=== PATIENT | female | born 1970 | race Caucasian/White ===

== ENCOUNTER 2019-10-12 09:24 | Outpatient (CLI) | payer OTHER, SELFPAY ==
--- NOTE | 2019-10-12 09:29 | MM_ITS ---
WS: [id number] SCREENING DIGITAL MAMMOGRAM WITH CAD HISTORY: SCREENING COMPARISON: 12/05/2014 and 09/25/2016 Bilateral CC and MLO views submitted. Computer aided detection analyzed. Breast composition: There are scattered areas of fibroglandular density. No suspicious masses, microc alcifications or architectural distortion. Benign lymph nodes in the lateral aspects of each breast. MM/[place] [id number] IMPRESSION: BI-RADS: 2-Benign FOLLOW UP: 1 Year Follow-up
== END 2019-10-12 09:25 | disposition home or self-care (01) ==
LOC: RADSHAW 09:29
PROVIDERS: PCP Family Medicine; Visit Provider Family Medicine
DX: Z12.31 Encounter for screening mammogram for malignant neoplasm of breast (principal)
CPT/HCPCS: 77067

== ENCOUNTER → 2020-05-24 08:23 | Outpatient (BNVA) | payer OTHER, SELFPAY | PROVIDERS: PCP Family Medicine; Referring Provider Nurse Practitioner Family; Visit Provider Orthopaedic Surgery | DX: S52.122A Displaced fracture of head of left radius, initial encounter for closed fracture (principal); X58.XXXA Exposure to other specified factors, initial encounter | CPT/HCPCS: 73080 ==

== ENCOUNTER → 2020-06-14 09:35 | Outpatient (BNVA) | payer OTHER, SELFPAY | PROVIDERS: PCP Family Medicine; Visit Provider Orthopaedic Surgery | DX: S52.122D Displaced fracture of head of left radius, subsequent encounter for closed fracture with routine healing (principal); X58.XXXD Exposure to other specified factors, subsequent encounter; W19.XXXD Unspecified fall, subsequent encounter | CPT/HCPCS: 73080 ==

== ENCOUNTER → 2020-07-10 09:12 | Outpatient (BNVA) | payer OTHER, SELFPAY | PROVIDERS: PCP Family Medicine; Visit Provider Orthopaedic Surgery | DX: S59.902A Unspecified injury of left elbow, initial encounter (principal); X58.XXXA Exposure to other specified factors, initial encounter | CPT/HCPCS: 73080 ==

== ENCOUNTER 2022-05-19 13:36 | Emergency (ER) | payer BC, SELFPAY ==
--- NOTE | 2022-05-19 13:46 | W.ED.NEUROSD ---
HPI - Neuro Symptoms/Deficit General: Chief Complaint: Neuro Symptoms/Deficit Stated Complaint: states stroke symtpoms Time Seen by Provider: 05/19/22 13:46 History of Present Illness: Ms Ybarra is a 51-year-old lady with history of anxiety and thyroid disorder presenting to the emergency department for strokelike symptoms. Onset of symptoms was minutes ago at rest. She endorses a abnormal feeling in her chin that subsequently spread to the left side of her face and on the left side of her neck. Denies other associated neurologic symptoms or headache. Denies history of complex migraines/headaches. Intensity symptoms is mild to moderate. Course has persisted. No other specific changes in health, exacerbating, or alleviating factors identified. Onset (ago): minute(s) Location: left face History of same: No Severity: moderate Relieving factors: none Exacerbating factors: none Context: sudden onset On Anticoagulants: No Associated symptoms: Reports no associated symptoms Review of Systems General: Reports: 10 or more systems reviewed and unremarkable except in HPI and below PFSH ED PFSH: Medical History (Updated 05/27/22 @ 00:01 by IESHA Doyle) Anxiety Hypertension Hyperthyroidism Surgical History (Updated 05/19/22 @ 14:14 by Asaf Santiago MD) History of hysterectomy Social History Smoking and tobacco status: never smoked Alcohol intake: never Physical Exam Const: COMMON NORMALS: alert GENERAL APPEARANCE: cooperative and well developed HENMT: COMMON NORMALS: normocephalic and atraumatic HEAD & SCALP: normocephalic and atraumatic THROAT: posterior oropharynx normal Eye: COMMON NORMALS: conjunctivae normal CONJUNCTIVA: Yes conjunctivae normal SCLERA: sclerae normal Neck/C-Spine: COMMON NORMALS: supple GENERAL: Yes trachea midline Resp: COMMON NORMALS: normal respiratory effort EFFORT & INSPECTION: Yes able to speak in complete sentences Cardio: COMMON NORMALS: regular rate and regular rhythm RATE: regular rate RHYTHM: regular rhythm GI: COMMON NORMALS: Soft to palpation PALPATION: Yes Soft to palpation and No Tenderness to palpation present (GI) PERCUSSION: normal to percussion Extremity: GENERAL: Yes normal exam except as noted and No edema Neuro: COMMON NORMALS: moves all extremities SENSORIUM/ORIENTATION: Yes alert and No Orientation impaired OTHER: Left 5th nerve branch 2 and 3 distribution subjective sensory 50 to 75% compared to contralateral side, minimal left corner of mouth weakness compared to contralateral side. Psych: COMMON NORMALS: mental status grossly normal and Normal thought process present THOUGHT PROCESS: Normal thought process present Course Vital Signs: Vital signs: Vital Signs Temperature 98.2 F 05/19/22 13:53 Pulse Rate 68 05/19/22 13:53 Respiratory Rate 18 05/19/22 13:53 Pulse Oximetry 95 05/19/22 13:53 Oxygen Delivery Me thod 05/19/22 13:53 MDM - Neuro Symptoms/Deficit Medical Decision Making 51-year-old lady presenting with reported strokelike symptoms recent onset. NIHSS 1 with possibly second point for minimal left corner of mouth asymmetry compared to contralateral side. Given NIHSS of 2 max patient is not a tPA candidate. EKG notable for sinus rhythm with normal axis and intervals, no STEMI. Labs with no significant hematologic or metabolic abnormalities to explain symptoms. Chest x-ray with no lobar consolidation or pneumothorax. CT head negative. Given physical exam findings and atypical nature of symptoms for stroke as well as other factors and history I do not believe that patient requires further advanced imaging in the emergency department. Case discussed with neurology, plan to treat for atypical Leggett's palsy type symptoms. During ED course patient treated with IV fluids. Exact etiology of patient's symptoms is unclear though may be related to atypical Leggett's palsy/nerve irritation. No vesicular lesions or rashes noted on exam. The results of ED evaluation were discussed with the patient including prescriptions and/or symptomatic cares (if applicable) including appropriate and responsible use, followup plan, and return precautions. The patient verbalized understanding and felt safe for discharge. Medical Records I reviewed the patient's medical records. Lab Data I reviewed the patient's lab results. 05/19/22 14:15 05/19/22 14:15 Radiology Impressions Chest X-Ray 05/19/22 13:54 IMPRESSION: Central lower lung predominant ground-glass opacity. Nonspecific finding. Possible pulmonary edema versus artifact related to overlying soft tissues. Consider follow-up PA and lateral chest radiographs. Head CT 05/19/22 13:54 IMPRESSION: 1. No evidence of intracranial hemorrhage or mass effect. 2. No acute intracranial findings. Notified Asaf Santiago MD at 05/19/2022 2:15 PM. Laboratory Results WBC 8.2 10^3/uL (4.0-10.0) 05/19/22 14:15 RBC 4.91 10^6/uL (4.1-5.3) 05/19/22 14:15 Hgb 13.6 g/dL (11.5-15.3) 05/19/22 14:15 Hct 42.2 % (37.0-47.0) 05/19/22 14:15 MCV 85.9 fl (81-99) 05/19/22 14:15 MCH 27.7 pg (28.0-34.0) L 05/19/22 14:15 MCHC 32.2 g/dL (30.0-36.0) 05/19/22 14:15 RDW 13.9 % (12.1-15.1) 05/19/22 14:15 Plt Count 258 10^3/cmm (130-400) 05/19/22 14:15 MPV 10.0 fL (7.4-10.4) 05/19/22 14:15 Neut % (Auto) 54.0 % 05/19/22 14:15 Lymph % (Auto) 37.1 % 05/19/22 14:15 [place] % (Auto) 4.4 % 05/19/22 14:15 Eos % (Auto) 3.3 % 05/19/22 14:15 Baso % (Auto) 0.7 % 05/19/22 14:15 Neut # (Auto) 4.40 10^3/uL (1.8-7.7) 05/19/22 14:15 Lymph # (Auto) 3.0 10^3/uL (0.8-4.8) 05/19/22 14:15 [place] # (Auto) 0.4 10^3/uL (0.2-0.9) 05/19/22 14:15 Eos # (Auto) 0.3 10^3/uL (0.0-0.8) 05/19/22 14:15 Baso # (Auto) 0.1 10^3/uL (0.0-0.1) 05/19/22 14:15 Nucleated RBC % (auto) 0 % 05/19/22 14:15 Nucleated RBCs # 0.0 /100WBC 05/19/22 14:15 PT 12.70 SECONDS (12.1-14.9) 05/19/22 14:15 INR 0.93 (0.8-1.2) 05/19/22 14:15 APTT 30.9 SECONDS (23.9-36.7) 05/19/22 14:15 Sodium 137 mmol/L (136-145) 05/19/22 14:15 Potassium 3.9 mmol/L (3.5-5.1) 05/19/22 14:15 Chloride 100 mmol/L (98-107) 05/19/22 14:15 Carbon Dioxide 26 mmol/L (22-29) 05/19/22 14:15 Anion Gap 14.9 (5-19) 05/19/22 14:15 BUN 11 mg/dL (6-20) 05/19/22 14:15 Creatinine 0.6 mg/dL (0.5-0.9) 05/19/22 14:15 GFR Calculation 104.6 mL/min (90-130) 05/19/22 14:15 Glucose 107 mg/dL (65-115) 05/19/22 14:15 POC Glucose 108 mg/dL (70-110) 05/19/22 14:16 Calculated Osmolality 284 mOsm/kg (285-295) L 05/19/22 14:15 Calcium 8.2 mg/dL (8.5-10.5) L 05/19/22 14:15 Total Bilirubin 0.3 mg/dL (0.15-1.2) 05/19/22 14:15 AST 14 U/L (0-32) 05/19/22 14:15 ALT 10 U/L (0-33) 05/19/22 14:15 Alkaline Phosphatase 98 U/L (35-105) 05/19/22 14:15 Troponin T Baseline 6 ng/L (0-10) 05/19/22 14:15 Troponin T 120 Minute 6.00 ng/L (0-10) 05/19/22 16:18 Delta Troponin T 0 ABS# (0-10) 05/19/22 16:18 Total Protein 6.8 g/dL (6.6-8.7) 05/19/22 14:15 Albumin 3.9 g/dL (3.5-5.2) 05/19/22 14:15 Globulin 2.9 g/dL (1.3-4.6) 05/19/22 14:15 TSH 3.27 uIU/mL (0.27-4.20) 05/19/22 14:15 Discharge Plan Discharge Patient Disposition: Home Clinical Impression: Facial paresthesia Condition: Stable Prescriptions: New valacyclovir 500 mg tablet 1,000 mg PO TID Qty: 7 0RF No Action acetaminophen [Tylenol Extra Strength] 500 mg tablet 2,400 mg PO DAILY PRN fluoxetine 20 mg capsule 40 mg PO DAILY hydrocodone-acetaminophen 5-325 mg tablet 1 tab PO Q6H PRN (Reason: pain) 7 Days Qty: 20 0RF levothyroxine [Synthroid] 150 mcg tablet 150 mcg PO DAILY Rx Instructions: 6 days per week Discharge Orders: Discharge ED (Routine); Ordered 05/19/22 Ordered By: Asaf Santiago Referrals: Wilbur Calhoun MD [Primary Care Provider] - Discharge Diet: Usual diet Discharge Activity: Resume usual activity Patient Instructions: Paresthesia (ED) Activity Restrictions/Additional Instructions: Thank you for visiting the emergency department. You were seen and evaluated for strokelike symptoms with facial paresthesias. The exact cause of your symptoms is unclear though may be related to nerve irritation. This will be treated with steroids and antivirals. I will message case management for neurology follow-up. Return to the emergency department for worsening symptoms, any new neurologic symptoms, or anything else that you are concerned about and feel needs emergency department evaluation. Coding Level of Care Code ED [employer] Clerk for Jose Roberto Layton
[2022-05-19 13:53] VITALS: PULSE 68; RESP 18; TEMP 36.8; O2SAT 95
--- NOTE | 2022-05-19 13:54 | CT_ITS ---
WS: [id number] CT HEAD TECHNIQUE: Noncontrast CT of the head obtained from the skullbase to the vertex. CLINICAL INFORMATION: Symptoms of acute stroke COMPARISON: None. DLP: [address] scans at [facility] use at least one of these dose optimization techniques: automated e xposure control; mA and/or kV adjustment per patient size (includes targeted exams where dose is matc hed to clinical indication); or iterative reconstruction. FINDINGS: No evidence of intracranial hemorrhage or mass effect. Ventricular system and basal cisterns are bernal nt. Minimal small vessel changes. No extra-axial fluid collections. No evidence of mass or mass effec t. Paranasal sinuses and mastoid air cells are well aerated. .Normal visualized soft tissues. CT/CT head thrombolytic [id number] IMPRESSION: 1. No evidence of intracranial hemorrhage or mass effect. 2. No acute intracranial findings. Notified Asaf Santiago MD at 05/19/2022 2:15 PM.
--- NOTE | 2022-05-19 13:54 | XRR_ITS ---
PROCEDURE INFORMATION: Exam: XR Chest Exam date and time: 05/19/2022 2:10 PM Age: 51 years old Clinical indication: Pain; Chest pressure; Additional info: Chest discomfort TECHNIQUE: Imaging protocol: Radiologic exam of the chest. Views: 1 view. COMPARISON: CT angio chest PE protcl [id number] 06/02/2016 4:34 PM FINDINGS: Lungs: Central lower lung predominant ground-glass opacity bilaterally. There is no consolidation. Pleural spaces: There is no pleural effusion or pneumothorax. Heart/Mediastinum: There is mild enlargement of the cardiac silhouette. Bones/joints: Bones are unremarkable. XR/XR chest 1V portable [id number] IMPRESSION: Central lower lung predominant ground-glass opacity. Nonspecific finding. Possible pulmonary edema versus artifact related to overlying soft tissues. Consider follow-up PA and lateral chest radiographs.
--- NOTE | 2022-05-19 13:55 | ECG_ITS ---
[facility] Test Date: 2022-05-19 Pat Name: Lovely Ybarra Department: Room: Gender: Female Dairy Department Manager: : 1970 Requested By: Asaf Santiago Order Number: [id number] Gerber MD: Wei Thomas M.D. Measurements Intervals [place] Rate: 65 P: 64 NH: 148 QRS: 63 QRSD: 110 T: 51 QT: 420 QTc: 437 Interpretive Statements SINUS RHYTHM Compared to ECG 09/29/2014 14:00:04 No significant changes Electronically Signed On 05-19-2022 14:26:38 FILM HISTORIAN by Wei Thomas M.D. [id number]
[2022-05-19 14:19] LABS: Glucose Point of Care 108 mg/dL (70-110)
[2022-05-19 14:33] LABS: Basophils # 0.1 10^3/uL (0.0-0.1); Basophils % 0.7 %; Eosinophils # 0.3 10^3/uL (0.0-0.8); Eosinophils % 3.3 %; Hematocrit 42.2 % (37.0-47.0); Hemoglobin 13.6 g/dL (11.5-15.3); Lymphocytes % 37.1 %; Mean Corpuscular HGB Conc 32.2 g/dL (30.0-36.0); Mean Corpuscular Hemoglobin 27.7 pg (28.0-34.0); Mean Corpuscular Volume 85.9 fl (81-99); Monocytes # 0.4 10^3/uL (0.2-0.9); Monocytes % 4.4 %; Nucleated Red Blood Cells % 0 %; Platelet Count 258 10^3/cmm (130-400); Red Blood Count 4.91 10^6/uL (4.1-5.3); Red Cell Distribution Width 13.9 % (12.1-15.1); White Blood Count 8.2 10^3/uL (4.0-10.0)
[2022-05-19 14:41] LABS: INR 0.93 (0.8-1.2)
[2022-05-19 14:42] LABS: Partial Thromboplastin Time 30.9 SECONDS (23.9-36.7)
[2022-05-19 14:50] LABS: Troponin(5th) Baseline 6 ng/L (0-10)
[2022-05-19 15:00] LABS: Alanine Aminotransferase 10 U/L (0-33); Albumin Level 3.9 g/dL (3.5-5.2); Alkaline Phosphatase 98 U/L (35-105); Anion Gap 14.9 (5-19); Aspartate Amino Transferase 14 U/L (0-32); Blood Urea Nitrogen 11 mg/dL (6-20); Calcium 8.2 mg/dL (8.5-10.5); Carbon Dioxide 26 mmol/L (22-29); Chloride 100 mmol/L (98-107); Globulin 2.9 g/dL (1.3-4.6); Glomerular Filtration Rate 104.6 mL/min (90-130); Glucose 107 mg/dL (65-115); Osmolality Calculated 284 mOsm/kg (285-295); Potassium 3.9 mmol/L (3.5-5.1); Sodium 137 mmol/L (136-145); Thyroid Stimulating Hormone 3.27 uIU/mL (0.27-4.20); Total Bilirubin 0.3 mg/dL (0.15-1.2); Total Protein 6.8 g/dL (6.6-8.7)
--- NOTE | 2022-05-19 15:55 | ECG_ITS ---
[facility] Test Date: 2022-05-19 Pat Name: Lovely Ybarra Department: Room: Gender: Female Head Of Sales: : 1970 Requested By: Asaf Santiago Order Number: [id number] Zabrina MD: Wei Thomas M.D. Measurements Intervals [place] Rate: 65 P: 64 MO: 158 QRS: 53 QRSD: 112 T: 53 QT: 419 QTc: 436 Interpretive Statements SINUS RHYTHM MODERATE INTRAVENTRICULAR CONDUCTION DELAY [110+ ms QRS DURATION] Compared to ECG 05/19/2022 14:09:17 Intraventricular conduction delay now present Electronically Signed On 05-19-2022 16:44:57 REPLANTING MACHINE CREW by Wei Thomas M.D. [id number]
[2022-05-19 17:09] LABS: Troponin 5 2HR Delta 0 ABS# (0-10)
== END 2022-05-19 17:07 | disposition home or self-care (01) ==
PROVIDERS: Emergency Provider Emergency Medicine; PCP Family Medicine
DX: R20.2 Paresthesia of skin (principal); I10 Essential (primary) hypertension
CPT/HCPCS: 36415; 36416; 70450; 71045; 80053; 82962; 84443; 84484; 85025; 85610; 85730; 93005; 99285

== ENCOUNTER → 2024-07-21 15:03 | Outpatient (BNVA) | payer BC, SELFPAY | PROVIDERS: PCP Family Medicine; Visit Provider Internal Medicine Rheumatology | DX: M31.6 Other giant cell arteritis (principal); Z79.899 Other long term (current) drug therapy; Z71.85 Encounter for immunization safety counseling | CPT/HCPCS: 36415; 82085; 82306; 82550; 86036; 86480; 86704; 86803; 87340 ==

== ENCOUNTER → 2024-09-20 12:37 | Outpatient (BNVA) | payer BC, SELFPAY | PROVIDERS: PCP Family Medicine; Visit Provider Internal Medicine Rheumatology | DX: Z79.899 Other long term (current) drug therapy (principal) | CPT/HCPCS: 36415; 80076; 82306; 82565; 85025; 85651; 86140 ==

== ENCOUNTER 2025-02-15 15:24 | Emergency (ER) | payer BC, SELFPAY ==
[2025-02-15 15:29] VITALS: BMI 55.5
[2025-02-15 15:36] VITALS: BP 162/73; PULSE 85; RESP 17; TEMP 36.6; O2SAT 99
--- NOTE | 2025-02-15 16:01 | CTR_ITS ---
PROCEDURE INFORMATION: Exam: CTA Head With Contrast, Arteriography Exam date and time: 02/15/2025 5:15 PM Age: 54 years old Clinical indication: Pain; Headache; Additional info: Sudden onset headache TECHNIQUE: Imaging protocol: Computed tomographic angiography of the head with contrast. Exam focused on the arteries. Axial, coronal and sagittal reformatted images were created and reviewed. 3D rendering (Not supervised by radiologist): MIP and/or 3D reconstructed images were created by the technologist. Radiation optimization: All CT scans at this facility use at least one of these dose optimization techniques: automated exposure control; mA and/or kV adjustment per patient size (includes targeted exams where dose is matched to clinical indication); or iterative reconstruction. Contrast material: [id number]; Contrast volume: 100 ml; Contrast route: INTRAVENOUS (IV); COMPARISON: CT head thrombolytic [id number] 05/19/2022 2:00 PM RADIATION DOSE METRICS: Total DLP (mGy-cm): 1108.13 FINDINGS: ANTERIOR CIRCULATION: Right internal carotid artery: Intracranial segment is patent with no significant stenosis. No aneurysm. Right middle cerebral artery: No occlusion or significant stenosis. No aneurysm. Right anterior cerebral artery: No occlusion or significant stenosis. No aneurysm. Left internal carotid artery: Intracranial segment is patent with no significant stenosis. No aneurysm. Left middle cerebral artery: No occlusion or significant stenosis. No aneurysm. Left anterior cerebral artery: No occlusion or significant stenosis. No aneurysm. POSTERIOR CIRCULATION: Right vertebral artery: No occlusion or significant stenosis. No aneurysm. Left vertebral artery: No occlusion or significant stenosis. No aneurysm. Basilar artery: No occlusion or significant stenosis. No aneurysm. Right posterior cerebral artery: No occlusion or significant stenosis. No aneurysm. Left posterior cerebral artery: No occlusion or significant stenosis. No aneurysm. Brain: No definite mass, mass effect, or midline shift. Cerebral ventricles: No ventriculomegaly. Bones/joints: Unremarkable. No acute fracture. Soft tissues: Unremarkable. PROCEDURE INFORMATION: Exam: CTA Neck With Contrast Exam date and time: 02/15/2025 5:15 PM Age: 54 years old Clinical indication: Pain; Headache; Additional info: Sudden onset headache TECHNIQUE: Imaging protocol: Computed tomographic angiography of the neck with contrast. Exam focused on the cervical segments of the vasculature. Axial, coronal and sagittal reformatted images were created and reviewed. 3D rendering (Not supervised by radiologist): MIP and/or 3D reconstructed images were created by the technologist. Radiation optimization: All CT scans at this facility use at least one of these dose optimization techniques: automated exposure control; mA and/or kV adjustment per patient size (includes targeted exams where dose is matched to clinical indication); or iterative reconstruction. Contrast material: [id number]; Contrast volume: 100 ml; Contrast route: INTRAVENOUS (IV); COMPARISON: CT head thrombolytic [id number] 05/19/2022 2:00 PM RADIATION DOSE METRICS: Total DLP (mGy-cm): 1108.13 FINDINGS: Right common carotid artery: No stenosis. No dissection or occlusion. Right internal carotid artery: Normal. Extracranial segment patent with no significant stenosis. No dissection or occlusion. Right external carotid artery: No occlusion or stenosis of the origin. Left common carotid artery: No stenosis. No dissection or occlusion. Left internal carotid artery: Normal. Extracranial segment patent with no significant stenosis. No dissection or occlusion. Left external carotid artery: No occlusion or stenosis of the origin. Right vertebral artery: No stenosis. No dissection or occlusion. Left vertebral artery: No stenosis. No dissection or occlusion. Soft tissues: Unremarkable. Bones/joints: No acute osseous abnormality. Osteopenia. Straightening of the normal cervical lordosis. Mild multilevel spondylosis. CT/CT angio headneck* [id number] IMPRESSION: No large vessel stenosis or occlusion. IMPRESSION: No stenosis or occlusion. REFERENCES: NASCET CRITERIA. The degree of stenosis in the cervical segment of the internal carotid artery is based on NASCET criteria. Normal is no stenosis. Mild is less than 50% stenosis. Moderate is 50-69% stenosis. Severe is 70% to 99% stenosis. Total occlusion is no detectable patent lumen.
--- NOTE | 2025-02-15 16:01 | CTR_ITS ---
PROCEDURE INFORMATION: Exam: CT Head Without Contrast Exam date and time: 02/15/2025 5:15 PM Age: 54 years old Clinical indication: Pain; Headache; Additional info: Sudden onset headache TECHNIQUE: Imaging protocol: Computed tomography of the head without contrast. Axial, coronal and sagittal reformatted images were created and reviewed. Radiation optimization: All CT scans at this facility use at least one of these dose optimization techniques: automated exposure control; mA and/or kV adjustment per patient size (includes targeted exams where dose is matched to clinical indication); or iterative reconstruction. COMPARISON: CT head thrombolytic [id number] 05/19/2022 2:00 PM RADIATION DOSE METRICS: Total DLP (mGy-cm): 1108.13 FINDINGS: Brain: Subtle, patchy areas of hypoattenuation in the periventricular and subcortical white matter, nonspecific but suggestive of mild chronic small vessel ischemic disease. No CT evidence of acute intracranial hemorrhage or acute territorial infarction. No significant mass effect or midline shift. Basal cisterns patent. Cerebral ventricles: Prominence of the cortical sulci, cisterns and ventricular system, consistent with cerebral and cerebellar volume loss. Paranasal sinuses: Unremarkable. No fluid levels. Mastoid air cells: Minimal opacification of the left mastoid air cells. Bones: Unremarkable. No acute fracture. Soft tissues: Grossly unremarkable. CT/CT head wo con* [id number] IMPRESSION: 1. No CT evidence of acute intracranial pathology. 2. Additional findings, as above.
--- NOTE | 2025-02-15 16:04 | W.ED.HA ---
HPI - Headache General: Chief Complaint: Headache Stated Complaint: severe headache, double vision Time Seen by Provider: 02/15/25 15:38 Source: patient Mode of arrival: ambulatory Limitations: no limitations History of Present Illness: Patient is a 54-year-old female who presents to the emergency department with sudden onset severe headache that occurred around 1300. States she has a history of giant cell arteritis and this feels similar though she is having pain to bilateral scalp associated with double vision. Pain started while she was eating lunch, it has been steady since onset at an 8/10. No head injury or loss of consciousness. No unilateral numbness weakness or tingling. No facial droop or slurred speech. She does note some generalized facial numbness to the lower lip primarily. Mildly elevated blood pressure at this time 162/73 with the rest of her vitals are stable. She is calm and cooperative, joking at time of examination during neurological assessment. States that she had her giant cell arteritis biopsy negative, however this occurred after she had finished course of prednisone. MD elicited complaint: headache Pertinent past history: other (GCA) Onset (ago): hour(s) Time: 13:00 Onset description: while eating Location: right, left and frontal Severity: similar to previous episodes Pain scale (0-10): 8 Associated symptoms: Deny chest pain, confusion, fever(s), lightheadedness, nausea, rash or vomiting Related Data Home Medications ?Medication ?Instructions ?Recorded ?Confirmed levothyroxine 150 mcg tablet 150 mcg PO DAILY 05/06/19 02/15/25 (Synthroid) fluoxetine 20 mg capsule 40 mg PO DAILY 05/06/21 02/15/25 ibuprofen 125 mg-acetaminophen 250 2 tab PO Q8H PRN Fever Or Pain 02/15/25 02/15/25 mg tablet (Advil Dual Action) ibuprofen 200 mg tablet (Advil) 600 - 800 mg PO Q6H PRN Fever Or 02/15/25 02/15/25 Pain venlafaxine 75 mg capsule,extended 225 mg PO DAILY 02/15/25 02/15/25 release 24 hr Allergies Allergy/AdvReac Type Severity Reaction Status Date / Time No Known Allergies Allergy Verified 02/15/25 15:35 Review of Systems General: Reports: 10 or more systems reviewed and unremarkable except in HPI and below Const: Denies: fever(s), chills or fatigue Eyes: Reports: change in vision ENMT: Denies: throat pain, ear or mastoid pain or nasal discharge Card: Denies: chest pain, palpitations, swelling of feet/ankles or lightheadedness Resp: Denies: dyspnea, productive cough or wheezing GI: Denies: abdominal pain, nausea, vomiting, diarrhea or constipation : Denies: flank pain, difficulty voiding, dysuria or urinary frequency Musc: Denies: neck pain, back pain or joint pain Skin/Breast: Denies: rash Neuro: Reports: headache(s); Denies: numbness in extremities, weakness in extremities, lack of coordination, difficulty walking, dizziness, confusion, Slurred speech present or involuntary movements PFSH ED PFSH: Medical History Chronic steroid use Immunization counseling High risk medication use Giant cell arteritis Hypertension Anxiety Hyperthyroidism Surgical History History of hysterectomy Social History Smoking and tobacco/nicotine status: never used tobacco/nicotine Alcohol intake: never Substance/Drug Use: never Physical Exam Const: COMMON NORMALS: no acute distress, patient oriented x3 and no limitations GENERAL APPEARANCE: cooperative, comfortable and well developed ORIENTATION/CONSCIOUSNESS: Yes awake, Yes oriented to person, Yes oriented to place and Yes oriented to time HENMT: COMMON NORMALS: normocephalic, atraumatic and hearing grossly normal bilaterally HEAD & SCALP: normocephalic and atraumatic Eye: COMMON NORMALS: Equal, round and reactive pupils present, EOMs intact bilaterally and conjunctivae normal CONJUNCTIVA: Yes conjunctivae normal PUPIL: Yes Equal, round and reactive pupils present Resp: COMMON NORMALS: normal respiratory effort, No retractions, No use of accessory muscles and clear to auscultation bilaterally AUSCULTATION: clear to auscultation bilaterally Cardio: COMMON NORMALS: regular rate, regular rhythm, No clicks present (Cardio), No murmurs present (Cardio) and No rub (Cardio) RATE: regular rate RHYTHM: regular rhythm Extremity: COMMON NORMALS: normal to inspection, full ROM and capillary refill normal Neuro: COMMON NORMALS: patient oriented x3, CN's II-XII intact bilaterally, moves all extremities, no focal motor deficits and no sensory deficits noted SENSORIUM/ORIENTATION: Yes oriented to person, Yes oriented to place and Yes oriented to time COORDINATION/BALANCE: [id number] test normal and [id number] test normal SPEECH: speech normal GAIT: Yes Normal gait present MOTOR EXAM: 5/5 motor strength present throughout, Pronator motor function not present, no tremor noted, no asterixis, Motor fasciculations not present, Normal motor muscle tone present throughout and Motor abnormalities not present COORDINATION: [id number] test normal and [id number]-[id number] test normal OTHER: NIH 0 Psych: COMMON NORMALS: mental status grossly normal and Normal thought process present THOUGHT PROCESS: Normal thought process present Skin: COMMON NORMALS: no rashes or lesions noted GENERAL SKIN EXAM: no rashes or lesions noted Course Vital Signs: Vital signs: Vital Signs Temperature 97.8 F 02/15/25 15:36 Pulse Rate 85 02/15/25 15:36 Respiratory Rate 18 02/15/25 17:36 Blood Pressure 162/73 02/15/25 15:36 Pulse Oximetry 100 02/15/25 17:36 Oxygen Delivery Me thod Room Air 02/15/25 17:36 MDM - Headache Medical Decision Making Patient presented with acute onset headache about 3 hours prehospital, history of giant cell arteritis she had noted it felt similar but was to the bilateral scalp. Endorsed double vision as well she had no focal neurological deficit otherwise in terms of unilateral numbness weakness or tingling in her extremities, did note some generalized facial numbness that had spontaneously resolved. NIH of 0. No reported head trauma. Minimally hypertensive here but rest of vitals have been stable. ESR and CRP are not significantly elevated to indicate any possible temporal arteritis at this time, head CT negative and CTA head and neck also negative for any stenosis or occlusion. Suspect migraine type headache she will be referred to neurology, told to return with any new or worsening she does feel better prior to discharge. Lab Data 02/15/25 16:16 02/15/25 16:[address] 02/15/25 16:01 IMPRESSION: 1. No CT evidence of acute intracranial pathology. 2. Additional findings, as above. Head/Neck CTA 02/15/25 16:01 IMPRESSION: No large vessel stenosis or occlusion. IMPRESSION: No stenosis or occlusion. REFERENCES: NASCET CRITERIA. The degree of stenosis in the cervical segment of the internal carotid artery is based on NASCET criteria. Normal is no stenosis. Mild is less than 50% stenosis. Moderate is 50-69% stenosis. Severe is 70% to 99% stenosis. Total occlusion is no detectable patent lumen. Laboratory Results WBC 8.18 10^3/uL (3.29-11.43) 02/15/25 16:16 RBC 4.82 10^6/uL (3.85-5.65) 02/15/25 16:16 Hgb 13.00 g/dL (11.27-16.99) 02/15/25 16:16 Hct 39.9 % (36-47) 02/15/25 16:16 MCV 82.8 fl (85-98) L 02/15/25 16:16 MCH 27.0 pg (27-33) 02/15/25 16:16 MCHC 32.6 g/dL (30-55) 02/15/25 16:16 RDW 13.7 % (12.1-15.1) 02/15/25 16:16 Plt Count 254 10^3/cmm (157-399) 02/15/25 16:16 MPV 10.1 fL (7.4-10.4) 02/15/25 16:16 Neut % (Auto) 59.4 % 02/15/25 16:16 Lymph % (Auto) 29.0 % 02/15/25 16:16 [place] % (Auto) 5.7 % 02/15/25 16:16 Eos % (Auto) 4.6 % 02/15/25 16:16 Baso % (Auto) 0.9 % 02/15/25 16:16 Neut # (Auto) 4.86 10^3/uL (1.8-7.7) 02/15/25 16:16 Lymph # (Auto) 2.4 10^3/uL (0.8-4.8) 02/15/25 16:16 [place] # (Auto) 0.5 10^3/uL (0.2-0.9) 02/15/25 16:16 Eos # (Auto) 0.4 10^3/uL (0.0-0.8) 02/15/25 16:16 Baso # (Auto) 0.1 10^3/uL (0.0-0.1) 02/15/25 16:16 Nucleated RBC % (auto) 0 % 02/15/25 16:16 Nucleated RBCs # 0.0 /100WBC 02/15/25 16:16 ESR 9 mm/hr (0-15) 02/15/25 16:16 Sodium 140 mmol/L (136-145) 02/15/25 16:16 Potassium 4.0 mmol/L (3.5-5.1) 02/15/25 16:16 Chloride 104 mmol/L (98-107) 02/15/25 16:16 Carbon Dioxide 27 mmol/L (22-29) 02/15/25 16:16 Anion Gap 13.0 (5-19) 02/15/25 16:16 BUN 13 mg/dL (6-20) 02/15/25 16:16 Creatinine 0.8 mg/dL (0.5-0.9) 02/15/25 16:16 GFR Calculation 74.2 mL/min (90-130) L 02/15/25 16:16 Glucose 112 mg/dL (65-115) 02/15/25 16:16 Calculated Osmolality 291 mOsm/kg (285-295) 02/15/25 16:16 Calcium 8.5 mg/dL (8.5-10.5) 02/15/25 16:16 Total Bilirubin 0.2 mg/dL (0.15-1.2) 02/15/25 16:16 AST 13 U/L (0-32) 02/15/25 16:16 ALT 8 U/L (0-33) 02/15/25 16:16 Alkaline Phosphatase 122 U/L (35-105) H 02/15/25 16:16 C-Reactive Protein 13.4 mg/L (0.0-4.9) H 02/15/25 16:16 Total Protein 6.8 g/dL (6.6-8.7) 02/15/25 16:16 Albumin 3.9 g/dL (3.5-5.2) 02/15/25 16:16 Globulin 2.9 g/dL (1.3-4.6) 02/15/25 16:16 All radiology interpretation(s) finalized by discharge Discharge Plan Discharge Patient Disposition: Home Clinical Impression: Migraine Qualifiers: Migraine type: unspecified Status migrainosus presence: without status migrainosus Intractability: not intractable Qualified Code(s): G43.909 - Migraine, unspecified, not intractable, without status migrainosus Condition: Stable Prescriptions: No Action fluoxetine 20 mg capsule 40 mg PO DAILY levothyroxine [Synthroid] 150 mcg tablet 150 mcg PO DAILY venlafaxine 75 mg capsule,extended release 24hr 225 mg PO DAILY ibuprofen [Advil] 200 mg Tablet 600 - 800 mg PO Q6H PRN (Reason: Fever Or Pain) ibuprofen-acetaminophen [Advil Dual Action] 125-250 mg Tablet 2 tab PO Q8H PRN (Reason: Fever Or Pain) Discharge Orders: Discharge ED (Routine); Ordered 02/15/25 Ordered By: Rigo Polk Referrals: Wilbur Calhoun MD [Primary Care Provider, Family Practice] Patient Instructions: Patient Portal & Joel Instructions Activity Restrictions/Additional Instructions: Migraine Discharge Instructions Diagnosis: You were treated in the emergency department for a migraine headache. While you have a history of giant cell arteritis, your blood tests (ESR and CRP) and imaging studies (CT scan and CT angiography) were normal, which makes giant cell arteritis unlikely as the cause of your current headache. What You Received Today: You were given a migraine cocktail in the emergency department, and your symptoms have improved. This is a good sign that your headache is responding to migraine-specific treatment. Medications for Home: For headache recurrence in the next 48 hours, consider taking: - Naproxen sodium 550 mg by mouth, which can be taken every 12 hours as needed - Sumatriptan (a triptan medication) as prescribed, which can be taken if naproxen alone does not provide adequate relief If you do not have contraindications to these medications, they are proven to deliver relief for post-emergency department headache recurrence. Alternative options if the above medications are ineffective or not tolerated include other nonsteroidal anti-inflammatory drugs (NSAIDs) such as ibuprofen, or acetaminophen 1000 mg. Important Medication Safety: - Avoid opioid pain medications (such as hydrocodone or oxycodone) for migraine treatment, as they are not effective and carry risks of dependence and medication overuse headaches - Triptans should be avoided if you have heart disease, stroke history, or multiple cardiovascular risk factors due to their effects on blood vessels - Do not take more than the recommended dose of any medication - Avoid overusing acute migraine medications (more than 10 days per month), as this can lead to medication overuse headaches When to Seek Emergency Care: Return to the emergency department or call 911 if you experience: - Sudden, severe headache that is different from your usual migraines (especially thunderclap onset) - New neurologic symptoms such as weakness, numbness, vision changes, difficulty speaking, or confusion - Fever with headache - Headache after head injury - Headache that worsens despite treatment Given your history of giant cell arteritis, also watch for: - New jaw pain with chewing - New vision changes or vision loss - Scalp tenderness - Persistent fever or unexplained weight loss Follow-Up Care: You have a referral to neurology for further evaluation and management of your migraines. This is important because: - A neurologist can help determine if you need preventive medications to reduce migraine frequency - They can optimize your acute treatment plan - They can evaluate whether your headaches are related to your history of giant cell arteritis or represent a separate condition Please schedule this appointment within the next 2-4 weeks. General Migraine Management: - Keep a headache diary to track triggers, frequency, and what helps - Identify and avoid dietary triggers when possible - Maintain regular sleep schedules - Stay well-hydrated - Manage stress when possible Questions or Concerns: If you have questions about your medications or symptoms before your neurology appointment, contact your primary care physician. 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
--- OUTSIDE RECORDS SUMMARY | 2025-02-15 16:14 | XMS_ITS | Data Portability ---
Author Organization DIANA [facility] Address [address] [facility] [address] [place] [address] Care Team Providers Care Mannequin Molder Name Role Phone FRANCK CALHOUN Primary Care Provider [phone] Assessment Encounter Date Assessment Date Assessment LastModified by Organization Details LastModified Time 06/17/2024 06/17/2024 she will call Thursday with an update. I spent greater than 45 mins in counseling and answering questions on likey pmr and why it can be fatal cause blindness strokes etc and the importance of not stopping prednisone. . all questions were answered to the patient's satisfaction. the patient was given the opportunity to ask additional questions and acknowledged he had no additional questions at this time and will call if any questions arise. [email or web address] Not available 06/17/2024 10:56:44 Plan of Treatment Reminders Order Date Submit Date Provider Last Modified By Organization Details Last Modified Time Details Appointments ACUTE VISIT 2024 01:40P M WALK-IN Not available Not available Not available Lab C-reactiv e protein, quantitat kera, serum or plasma 2024 025 [email or web address] [facility], [address] [facility] [address], [address], [place], [address], 06/24/2024 08:36:46 CBC 2024 025 [facility], [address], [place], [address], 06/17/2024 11:20:39 CMP, serum or plasma 2024 025 [place] [facility], [address] [facility], [address], [place], [address], 06/17/2024 12:19:15 ESR (erythroc yte sedimenta tion rate), blood 2024 025 [facility] ([facility]), [address] [place] [address], [address], 06/17/2024 12:18:00 [place] + rf (antinucl ear antibodie s + rheumatoi d factor), quantitat kera, serum 2024 025 [email or web address] [facility], [address] [place] [address], [address], [place], [address], 06/24/2024 08:36:46 C-reactiv e protein, quantitat kera, serum or plasma 2024 025 [place] [facility], [address] [place] [address], [address], [place], [address], 06/21/2024 15:47:44 Referral otolaryng ologist referral 2024 025 Rancho Platt MD, [address] [place], [address], 07/22/2024 11:30:47 rheumatol ogist referral 2024 025 asurface Jerry Rey MD, [address] [place], [address], 07/04/2024 12:21:46 Procedures None recorded. Surgeries None recorded. Imaging electroca rdiogram 2024 025 [email or web address] [facility] ([facility]), [address] [place] [address], [address], 07/17/2024 21:46:54 Medication Orders prednison e 20 mg tablet 2024 025 [id number], [address], [facility], [place], [address], 02/15/2025 15:12:55 prednison e 5 mg tablet 2024 025 [id number], [address], [facility], [place], [address], 07/12/2024 17:30:45 levothyro xine 150 mcg tablet 2024 025 [id number], [address] [facility] [address], [facility], [place], [address], 06/17/2024 10:54:02 Patient TargetsNo targets recorded. Patient InstructionsNo instructions recorded. 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 r Temporal headache Referring Physician: Franck Calhoun [facility], Encounter Date: 07/13/2024 Results Created Date Observation Date Name Description Value Unit Range Abnormal Flag Note LastModifiedBy Organization Detail LastModifiedTime 06/18/1906/17/2024 CBC WBC 11.2 x10 4.0-10 .5 high Not Available [facility] [address] [facility], [place], [address], 06/17/2024 11:20:39 06/18/19 25 06/17/2024 CBC RBC 5.50 x10 3.50-5 .50 Not Available [facility] [address] [facility], [place], [address], 06/17/2024 11:20:39 06/18/19 25 06/17/2024 CBC HGB 15.7 g/dL 12.0-1 6.0 Not Available [facility] [address] [facility], [place], [address], 06/17/2024 11:20:39 06/18/19 25 06/17/2024 CBC HCT 47.5 % 37.0-4 7.0 high Not Available [facility] [address] [facility] [address] [facility], [place], [address], 06/17/2024 11:20:39 06/18/19 25 06/17/2024 CBC MCV 86.4 fL 80.0-9 9.9 Not Available [facility] [address] [facility] [address] [facility], [place], [address], 06/17/2024 11:20:39 06/18/19 25 06/17/2024 CBC MCH 28.5 pg 27.0-3 2.0 Not Available [facility] [address] [facility] [address] [facility], [place], [address], 06/17/2024 11:20:39 06/18/19 25 06/17/2024 CBC MCHC 33.0 g/dL 32.0-3 6.0 Not Available [facility] [address] [facility] [address] [facility], [place], [address], 06/17/2024 11:20:39 06/18/19 25 06/17/2024 CBC RDW 14.6 % 11.5-1 4.5 high Not Available [facility] [address] [facility] [address] [facility], [place], [address], 06/17/2024 11:20:39 06/18/19 25 06/17/2024 CBC plt 296.2 x10 140.0- 451.0 Not Available [facility] [address] [facility] [address] [facility], [place], [address], 06/17/2024 11:20:39 06/18/19 25 06/17/2024 CBC lymphocytes % 35.4 % 20.0-5 0.0 Not Available [facility] [address] [facility], [place], [address], 06/17/2024 11:20:39 06/18/19 25 06/17/2024 CBC granulcytes % 56.8 % 30.0-7 0.0 Not Available [facility] [address] [facility], [place], [address], 06/17/2024 11:20:39 06/18/19 25 06/17/2024 CBC monocytes % 5.6 % 2.0-16 .0 Not Available [facility] [address] [facility], [place], [address], 06/17/2024 11:20:39 06/18/19 25 06/17/2024 CBC granulcytes# 6.3 x10 Not Lisa ilable [facility] [address] [facility] [address], [place], [address], 06/17/2024 11:20:39 06/18/19 25 06/17/2024 CBC lymphocytes # 4.0 x10 Not Available [facility] [address] [facility] [address], [place], [address], 06/17/2024 11:20:39 06/18/19 25 06/17/2024 CBC monocytes # 0.6 x10 Not Avai lable [facility] [address] [facility] [address], [place], [address], 06/17/2024 11:20:39 06/18/19 25 06/17/2024 CMP (FEMA LE) glucose 113.0 mg/dL 60.0-9 9.0 high Not Available [facility] [address] [facility], [place], [address], 06/17/2024 12:19:15 06/18/19 25 06/17/2024 CMP (FEMA LE) BUN (blood urea nitrogen) 15.0 mg/dL 10.0-2 6.0 Not Available [facility] [address] [facility], [place], [address], 06/17/2024 12:19:15 06/18/19 25 06/17/2024 CMP (FEMA LE) creatinine (serum) 0.9 mg/dL 0.4-1. 5 Not Available [facility] [address] [facility] [address], [place], [address], 06/17/2024 12:19:15 06/18/19 25 06/17/2024 CMP (FEMA LE) BUN/creatini ne ratio 16.67 ratio Not Available [place] [address] [facility] [address], [place], [address], 06/17/2024 12:19:15 06/18/19 25 06/17/2024 CMP (FEMA LE) eGFR calculated 69.1 Not Available [facility] [address] [facility] [address], [place], [address], 06/17/2024 12:19:15 06/18/19 25 06/17/2024 CMP (FEMA LE) total protein 7.8 g/dL 6.0-8. 5 Not Available [facility] [address] [facility] [address], [place], [address], 06/17/2024 12:19:15 06/18/19 25 06/17/2024 CMP (FEMA LE) total bilirubin 0.5 mg/dL 0.2-1. 3 Not Available [facility] [address] [facility] [address], [place], [address], 06/17/2024 12:19:15 06/18/19 25 06/17/2024 CMP (FEMA LE) albumin 4.5 g/dL 3.5-5. 5 Not Available [facility] [address] [facility], [place], [address], 06/17/2024 12:19:15 06/18/19 25 06/17/2024 CMP (FEMA LE) globulin 3.3 calc Not Available [facility] [address] [facility] [address], [place], [address], 06/17/2024 12:19:15 06/18/19 25 06/17/2024 CMP (FEMA LE) AST (SGOT) 24.0 U/L 0.0-46 .0 Not Available [facility] [address] [facility] [address], [place], [address], 06/17/2024 12:19:15 06/18/19 25 06/17/2024 CMP (FEMA LE) altv (SGPT) 18.0 U/L 13.0-6 9.0 normal Not Available [facility] [address] [facility] [address], [place], [address], 06/17/2024 12:19:15 06/18/19 25 06/17/2024 CMP (FEMA LE) A/G ratio 1.4 ratio Not Available [facility] [address] [facility] [address], [place], [address], 06/17/2024 12:19:15 06/18/19 25 06/17/2024 CMP (FEMA LE) ALP phos 122.0 U/L 30.0-1 40.0 normal Not Available [facility] [address] [facility] [address], [place], [address], 06/17/2024 12:19:15 06/18/19 25 06/17/2024 CMP (FEMA LE) calcium 9.4 mg/dL 8.4-10 .5 Not Available [facility] [address] [address], [place], [address], 06/17/2024 12:19:15 06/18/19 25 06/17/2024 CMP (FEMA LE) sodium 138.0 mmol/ L 136.0- 145.0 Not Available [facility] [address] [facility], [place], [address], 06/17/2024 12:19:15 06/18/19 25 06/17/2024 CMP (FEMA LE) potassium 4.1 mmol/ L 3.5-5. 1 Not Available [facility] [address] [facility], [place], [address], 06/17/2024 12:19:15 06/18/19 25 06/17/2024 CMP (FEMA LE) chloride 100.0 mmol/ L 98.0-1 10.0 normal Not Available [facility] [address] [facility], [place], [address], 06/17/2024 12:19:15 06/18/19 25 06/17/2024 CMP (FEMA LE) C02 29.0 mmol/ L 22.0-3 1.0 Not Available [facility] [address] [facility] [address], [place], [address], 06/17/2024 12:19:15 06/18/19 25 06/17/2024 CMP (FEMA LE) anion gap 9.0 calc Not Available [facility] [address] [facility], [place], [address], 06/17/2024 12:19:15 06/18/19 25 06/17/2024 CMP (FEMA LE) osmolality 286.7 calc Not Available [facility] [address] [facility], [place], [address], 06/17/2024 12:19:15 06/18/19 25 06/21/2024 [place],I FA, CASCA DE AND RHEUM ATOID ARTHR ITIS PANEL 2, WITH REFLE XES [place] screen, ifa NEGATI VE negati ve normal [place] IFA is a first line scree n for detec ting the prese nce of up to appro ximat marla 150 autoa ntibo dies in vario us autoi mmune disea ses. A negat kera [place] IFA resul t sugge sts an BR[place]ON-a ssoci ated autoi mmune disea se is not prese nt at this time, and does not refle x furth er. If there is high clini racheal suspi cion for Sjogr en's syndr ome, testi ng for anti- SS-A/ Ro antib sammie shoul d be consi dered . Anti- Caro-1 antib sammie shoul d be consi dered for clini ashley suspe cted infla mmato ry myopa bautista . AC-0: Negat kera Inter natio nal Conse nsus on BR[place] Patte rns (http s://d oi.or g/10. 1515/ [facility]- 2017- 0052) For addit ional infor enedina paul e refer to http: //[facility] melissa bello.Ramirez stDia gnost ics.c om/fa q/FAQ 177 (This link is being provi ded for infor matio nal/ educa emily l purpo ses only. ) Not Available [facility] [place] [address] [place], [address], 06/21/2024 15:47:42 06/18/19 25 06/21/2024 BR[place],I FA, CASCA DE AND RHEUM ATOID ARTHR ITIS PANEL 2, WITH REFLE XES rheumatoid factor <10 IU/mL <14 normal Not Available [facility] [address] [place], [address], 06/21/2024 15:47:42 06/18/19 25 06/21/2024 BR[place],I FA, CASCA DE AND RHEUM ATOID ARTHR ITIS PANEL 2, WITH REFLE XES cyclic citrullinate d peptide (ccp) Ab (IgG) <16 units normal Refer ence Range Negat kera: <20 Weak Posit kera: 20-39 Moder ate Posit kera: 40-59 Stron g Posit kera: >59 Not Available [place] [address] [address] [place], [address], 06/21/2024 15:47:42 06/18/19 25 06/21/2024 [place],I FA, CASCA DE AND RHEUM ATOID ARTHR ITIS PANEL 2, WITH REFLE XES mutated citrullinate d vimentin (MCV) Ab <20 U/mL <20 Anti- mutat ed citru llina rm vimen tin antib sammie may be used as a secon d-alyssa e marke r of rheum atoid arthr itis, in addit ion to rheum atoid facto r and anti- cycli c citru llina rm pepti de (CCP) . Not Available [place] [address] [address] [place], [address], 06/21/2024 15:47:42 06/18/19 25 06/21/2024 CREAT INE KINAS E, TOTAL creatine kinase, total 48 U/L 21-240 normal Not Available [address], [address], 06/21/2024 15:47:43 06/18/19 25 06/21/2024 C-ANDREAS CTIVE PROTE IN C-reactive protein 7.7 mg/L <8.0 normal Not Available [address] [place], [address], 06/21/2024 15:47:43 06/18/19 25 06/17/2024 ESR (eryt hrocy te sedim entat ion rate) , blood ESR 15 Not Available [facility] ([facility]) [address] [place], [address], 06/17/2024 10:59:01 07/15/19 25 07/14/2024 elect rocar diogr am No observ ation record ed. [email or web address] [facility] ([facility]) [address] [place], [address], 07/14/2024 15:44:24 07/16/19 25 07/14/2024 shahrzad mae am No observ ation record ed. [email or web address] [facility] ([facility]) [address] [place], [address], 07/15/2024 10:24:17 Result Notes None recorded. Problems Name Problem SNOMED Code Status Onset Date Resolution Date Notes Provider Name and Address Organization Details Recorded Time Hypothyroidism 31504661 Active 2022 KASSY garcia [facility] 4 08:19:07 Depressive disorder 26971878 Active 2023 KASSY garcia [facility] 4 08:19:04 Inflammatory polyarthropath y 357137558 Active 2024 KASSY garcia [facility] 5 09:25:08 Problem Notes None recorded. Medical Equipment None Reported. Allergies No known drug allergies Medications Name Sig Start Date Stop Date Status Note LastModified by Organization Details LastModified Time fluoxetin e 40 mg capsule TAKE 1 CAPSULE BY MOUTH EVERY DAY active Not Available Not Available No t Available amoxicill in 500 mg capsule TAKE 1 CAPSULE EVERY 8 HOURS UNTIL GONE 06/17 completed Not Available Not Available Not Available venlafaxi ne ER 75 mg capsule,e xtended release 24 hr TAKE 3 CAPSULES BY MOUTH EVERY DAY 2024 active Not Available Not Available Not Avai lable Tylenol 500 mg capsule as needed 06/06 completed 0; Recorded 05/16/19 23 9:27AM by Nina Kaba RN, Office Visit; Not Available Not Available Not Available doxycycli ne hyclate 100 mg capsule TAKE 1 CAPSULE BY MOUTH TWICE A DAY FOR 10 DAYS 03/13 completed Not Available Not Available Not Available hydrocodo ne 5 mg-acetam inophen 325 mg tablet TAKE 1-2 TABLETS BY MOUTH EVERY 5 HOURS NEEDED FOR PAIN 02/15 completed Not Available Not Available Not Available prednison e 20 mg tablet 2&1/2 TABS DAILY FOR 1 WEEK, 2 TABS DAILY FOR 1 WEEK, 1&1/2 TABS DAILY FOR 2 WEEKS NEEDED 02/15 completed Not Available Not Available Not Available prednison e 5 mg tablet TAKE 3 TABLETS BY MOUTH EVERY DAY 07/12 completed Not Available Not Available Not Available valacyclo vir 500 mg tablet TAKE 2 TABLETS BY MOUTH 3 TIMES A DAY 09/26 completed Not Available Not Available Not Available omeprazol e 40 mg capsule,d elayed release TAKE 1 CAPSULE IN AM 30 MINUTES BEFORE BREAKFAS T ORALLY DAILY 02/15 completed Not Available Not Available Not Available levothyro xine 150 mcg tablet TAKE 1 TABLET BY MOUTH EVERY DAY active Not Available Not Available No t Available ketorolac 60 mg/2 mL intramusc ular solution Inject 1 mL every 6 hours by intramus cular route. 07/22 completed Not Available Not Available Not Available fluoxetin e daily 03/13 completed 436; Recorded 05/16/19 23 7:18AM by Kassy Preston LPN (Authori matthew through Franck Calhoun MD), Refill Request; Refill Quantity : 30; Capsule; Not Available Not Available Not Available venlafaxi ne daily 03/13 completed Recorded 05/16/19 23 9:41AM by Franck Calhoun MD, Office Visit; Refill Quantity : 90; Tablet; Not Available Not Available Not Available prednison e 07/13 completed Not Available Not Available Not Available betametha sone 6 mg/mL injection suspensio n/norflur -HFC 245fa top spray Take 9 mg by miscell. route for 1 day. 07/22 completed Not Available Not Available Not Available Vitals Date Recorded Body height Body mass index (BMI) Body weight Body temperature Heart rate Oxygen saturation Systolic And Diastolic Provider Name and Address Organization Details Last Updated DateTime 5 165.1 cm 53.4 kg/m2 119622. 15 g 97.4 [degF] 100 /min 95 % 148/72 mm[Hg] KASSYCorrine PRESTON [facility] 5 09:29:17 Date Recorded Body height Body mass index (BMI) Body weight Oxygen saturation Heart rate Respiratory rate Body temperature Systolic And Diastolic Provider Name and Address Organization Details Last Updated DateTime 5 165.1 cm 53.7 kg/m2 151771. 34 g 96 % 88 /min 16 /min 98.2 [degF] 150/86 mm[Hg] Martha Rao [facility] 5 17:36:46 Date Recorded Body height Body mass index (BMI) Body weight Body temperature Heart rate Oxygen saturation Systolic And Diastolic Provider Name and Address Organization Details Last Updated DateTime 5 165.1 cm 53.3 kg/m2 859323. 56 g 97.4 [degF] 94 /min 94 % 152/88 mm[Hg] KASSY PRESTON [facility] 5 08:30:43 Date Recorded Body height Body mass index (BMI) Body weight Oxygen saturation Heart rate Body temperature Systolic And Diastolic Provider Name and Address Organization Details Last Updated DateTime 5 165.1 cm 55.6 kg/m2 364265. 85 g 96 % 81 /min 98.1 [degF] 124/80 mm[Hg] Kadie Olmedoelvin [facility] 5 15:17:04 Social History Question Answer Notes LastModified by Organizat ion Details LastModified Time Tobacco Smoking Status Never Smoker KASSYCorrine PRESTON [facility] 09/26/2022 08:49:43 What Was The Date Of Your Most Recent Tobacco Screening? 02/15/2025 [email or web address] Information not available 02/15/2025 Sex: Unknown Functional Status Question Answer Note LastModified by Organization D etails LastModified Time Do you or have you ever used any other forms of tobacco or nicotine? No [email or web address] Information not available 06/17/2024 What is your level of alcohol consumption? None [email or web address] Information not available 09/26/2022 Do you or have you ever used any nicotine-free cigarettes, vape, or chewing tobacco? No Information not available 06/17/2024 Mental Status None recorded. Family History Relationship Description Onset Age of this Age Resolved Age Notes LastModified by Organization Details LastModified Time Mother Diabetes mellitus Not available 06/17 09:25:43 Mother Age related macular degeneration [email or web address] Not available 09:25:57 Medical History No medical history recorded. Gynecological HistoryNo gynecological history recorded. Obstetrics History GPAL:G 0 P 0 0 0 0 Immunizations Vaccine Type Date Status Note Provider Nam e and Address Organization Details Recorded Time Influenza, split virus, trivalent, preservative 0 completed Not Available [facility] 04/14/2023 14:17:54 COVID-19, mRNA, LNP-S, PF, 100 mcg/0.5mL dose or 50 mcg/0.25mL dose 1 completed KASSY garcia [facility] 09/26/2022 08:48:17 COVID-19, mRNA, LNP-S, PF, 100 mcg/0.5mL dose or 50 mcg/0.25mL dose 1 completed KASSY garcia [facility] 09/26/2022 08:48:17 Tdap 5 completed KASSY garcia [facility] 09/26/2022 08:48:17 Past Encounters Encounter ID Performer Location Encounter Start Date Encounter Closed Date Diagnosis/Indication Diagnosis SNOMED-CT Code Diagnosis ICD10 Code Diagnosis IMO Codes Diagnosis Note [id number] Franck Calhoun MD [facility] ([facility]) [address] [place] [id number] 09/26/2022 08:38:43 09/26/2022 11:14:02 Hypothyroidism 09172005 E03.9 [id number] VESTA CLARK [facility] ([facility]) [address] [place] [id number] 5 03/04/2023 15:28:51 03/04/2023 16:30:13 Acute upper respiratory infection 14253657 J06.9 Suspected pneumonia or CHAD. Start doxycyclin e and prednisone today. Recommend avoiding cough suppressan ts. Encouraged patient to push fluids and use cool mist humidifier at night. Can take tylenol/ib uprofen as needed for pain and fever. Encouraged patient to return for further evaluation if no improvemen t in 3-5 days. If severe SOB or chest pain occurs, go to ED. Patient verbalized understand ing. [id number] Franck Calhoun MD [facility] ([facility]) [address] [place] [id number] 5 03/13/2023 12:04:23 03/16/2023 21:46:29 Fever 105067255 R50.9 call tues. with report of progress. be seen right away if sx worsen in any waywbc is reassuring against severe bacterial infection, vs are stable. will continue to monitor. [id number] Franck Calhoun MD [facility] ([facility]) [address] [place] [id number] 5 04/14/2023 14:15:33 04/14/2023 15:04:34 Patellar bursitis of left knee [id number] 545758 M70.52 Strain of flexor muscle of left hip 9148215996 1226471 S76.012A left knee mcmurrays is negligamen ts intactrom of the hip is pretty good but painful [id number] Franck Calhoun MD [facility] ([facility]) [address] [place] [id number] 5 05/12/2024 10:01:35 05/13/2024 10:15:32 Hypothyroidism 68485249 E03.9 Adult heal th examination 944924555 Z00.00 Hyperglycemia 82314962 R 73.9 [id number] Carson Vang DO [facility] ([facility]) [address] [place] [address] [id number] 5 06/06/2024 13:57:14 06/06/2024 15:40:17 Inflammatory polyarthropathy 985876027 M06.4 concern for autoimmune arthropath y. will start steroid burst for 10 days. pt to f/u with pcp in 2-3 wks for re-eval and considerat ion of workup for this. pt will update PCP on how/if the prednisone changed her symptoms. [id number] Franck Calhoun MD [facility] ([facility]) [address] [place] [id number] 5 06/17/2024 09:18:42 06/17/2024 13:46:39 Proximal muscle weakness 694848601 M62.81 if she gets a headache she will go up to 60 mg dally and seek er care or if any sign of organ damage vision change. Hypothyroidism 31901061 E03.9 [id number] CHRISTOS GOTTI [facility] ([facility]) [address] [place] [address] [id number] 5 07/12/2024 17:25:58 07/16/2024 22:16:59 Inflammatory polyarthropathy 181979612 M06.4 Will increase pt's daily prednisone for the acute flare. She has an appt with her PCP tomorrow morning. She has taken 15mg prednisone today. Advised to take an add'l 20mg tab once she fills the rxn this evening. Tomorrow morning take 2 tabs and keep appt with PCP.Concer n for temperol arteritis with the tenderness present today. [id number] Franck Calhoun MD [facility] ([facility]) [address] [place] [id number] 5 07/13/2024 08:26:05 07/13/2024 09:22:19 Temporal headache 33906295 R51.9 [id number] with proximal muscle weakness.s he is given 20 additional mg of prednisone while here to make total of 60 mg todayshe will take 60 mg in the a.m. and see ENT tomorrow to consider temporal artery bx new onset jaw and tongue fatigue, temporal ttp and headache in the setting of proximal muscle weakness previously very responsive to prednisone . esr and crp were normal onmy initial eval but she was already on prednisone 20 mg for one week at that time. ck was kamryn, brenton/rheum panel neg, cmp normal, cbc unremarkab le, tsh normal. will also request an expedited rheumatolo gy eval. if she has increased headache, weakness, any neurologic sx including loss of vision flashing lights shad in the vision she will go immediatel y to the ER. I have spent 50 minutes evaluatin and in counsleoin g of hs patient regarding these issues. all of her questions were answered to her satisfacti on. 90% of this time wa face to face and included discussion with ENt specialist today and messaging uriel holman. i expect there will be additional time management discussing her case with uriel holman as well. [id number] Franck Calhoun MD [facility] ([facility]) [address] [place] [phone] 07/14/2024 10:26:38 07/17/2024 21:46:53 Preoperative procedure [id number] Health Concerns Section Related Observation LastModified by Organization Detai ls LastModified Time None Recorded Concern Status LastModified by Organization Details LastModified Time None Recorded Advance Directives Directive None Recorded Payers Insurance Date Sequence Insurance Name Policy Number Policy Arauz Covered Member ID Arauz Member ID Guarantor Name 02/15/2025 1 [employer] [id number] Lovely Ybarra [id number] Lovely Ybarra Notes Date Note Type Note Provider Name and Address Organization Details Recorded Time 06/17/2024 text/html Joint PainReport ed by PatientHPIFor location, (patient reports that when this happens, she has all over muscle and joint pain.). For associated symptoms, (fatigue).Patient states that about 2-3 times a month she will have all over joint pain and muscle pain. She reports that everything hurts. This will last for about 24 hours. Patient states that after the 24 hours, she forces herself to get up and then symptoms will improve. Patient reports having a lot of motivation issues with this. she responded to prednisone i could move much more every weekend she becomes fatigued. I don't want to do anything. I could just sleep. she has a lot of bad self talk I've really been working on losing weight.I've worked on actually getting to bed for 8-9 hours of sleep and that helps a lot.she is intermittent fasting she tracks that on an jessica and has been successful. Home life is not great but better.. She cano not cook at home anymore. she has more pain when she is exhausted. the joints hurt to move. to touch her skin hurts they don't look tight or swollen she gets tension headaches. her muscles all hurt everywhere.she gets lots of heartburn with it.her toes and ankles wrists hands and fingers will hurt and be stiff. herROS as noted in the HPI she did have some tongue fatigue and jaw claudication Franck Calhoun MD [address] [place] [address], [phone], [facility] 06/17/2024 10:57:26 07/12/2024 text/html ROS as noted in the HPI walk in patientpatient is here today for a hard heart rate, headache, and loss of her voice that started a couple of hours ago. On eval today her heart rate feels normal to her, vallejo is improving but still present to the right temporal region. Her PCP has a referral into Rheumatology for inflammatory polyarthropathy. Pt currently takes 15mg prednisone daily. PCP had advised pt if her vallejo or symptoms were worsening to f/u in ER. CHRISTOS GOTTI [address] [place] [address], [phone], [facility] 07/13/2024 11:42:04 07/13/2024 text/html HeadacheReported by PatientHPIFor location, patient reportsfrontal.ROS as noted in the HPI walk in patientpatient is here today for a fast heart rate in her throat. this was a brief episode. she had a tenderness in her throat and scientology and headache above her right eye, her scientology was very very tender and she felt like she had been chewing bubble gum all day (my jaw was so very tired). the right neck was tender and painful. she felt very weak from that point on and this morning in the shoulder girdle, nec and hips. walking was more shuffly i couldn't pick my feet up. she took a total of 35 mg of prednisone yesterday her usual 15 in the morning and 20 that evening when the sxs hit. she took 40mg this a.m.she did have some tongue fatigue and jaw claudication previously. Franck Calhoun MD [address] [place], [phone], [facility], [facility] 07/13/2024 09:12:07 02/15/2025 text/html walk inx1 hour ago c/o LLQ pain, after rapid onset of BM also given pt HAHaving terrible headache, extends to jaw both sides, double vision, weakness Not Available Not Available Not Available OBGyn Episode No OBEpisode recorded.
[2025-02-15 16:22] LABS: Hematocrit 39.9 % (36-47); Hemoglobin 13.00 g/dL (11.27-16.99); Mean Corpuscular HGB Conc 32.6 g/dL (30-55); Mean Corpuscular Hemoglobin 27.0 pg (27-33); Mean Corpuscular Volume 82.8 fl (85-98); Nucleated Red Blood Cells % 0 %; Platelet Count 254 10^3/cmm (157-399); Red Blood Count 4.82 10^6/uL (3.85-5.65); White Blood Count 8.18 10^3/uL (3.29-11.43)
[2025-02-15 16:59] LABS: Alanine Aminotransferase 8 U/L (0-33); Albumin Level 3.9 g/dL (3.5-5.2); Alkaline Phosphatase 122 U/L (35-105); Anion Gap 13.0 (5-19); Aspartate Amino Transferase 13 U/L (0-32); Blood Urea Nitrogen 13 mg/dL (6-20); Calcium 8.5 mg/dL (8.5-10.5); Carbon Dioxide 27 mmol/L (22-29); Chloride 104 mmol/L (98-107); Globulin 2.9 g/dL (1.3-4.6); Glucose 112 mg/dL (65-115); Osmolality Calculated 291 mOsm/kg (285-295); Potassium 4.0 mmol/L (3.5-5.1); Sodium 140 mmol/L (136-145); Total Protein 6.8 g/dL (6.6-8.7)
[2025-02-15] MEDS: iohexol 350 mg/mL 500 mL Btl (per mL) IV (17:22)
[2025-02-15 17:36] VITALS: RESP 18; O2SAT 100
[2025-02-15] MEDS: ondansetron 2 mg/ML SDV 2 mL 4 MG IVP (18:11)
[2025-02-15] MEDS: diphenhydrAMINE 50 mg/mL SDV 1mL IVP (18:15)
--- NOTE | 2025-02-16 10:25 | DCPLANNER ---
messaged neuro for er f/u
== END 2025-02-15 19:51 | disposition home or self-care (01) ==
PROVIDERS: Emergency Provider Physician Assistant; PCP Family Medicine
DX: G43.909 Migraine, unspecified, not intractable, without status migrainosus (principal); I10 Essential (primary) hypertension
CPT/HCPCS: 36415; 70450; 70496; 70498; 80053; 85025; 85651; 86140; 96361; 96374; 96375; 99285; J1100; J1200; J1885; J2405; J7030